=== PATIENT | female | born 1935 | race Caucasian/White ===

== ENCOUNTER → 2025-06-21 12:33 | Outpatient (REF) | payer MEDICARE, OTHER, SELFPAY ==
[2025-06-21 13:47] LABS: Hematocrit 38.6 % (37.0-47.0); Hemoglobin 12.5 g/dL (12.0-16.0); Mean Corp Hgb Conc. 32.4 g/dL (33.0-37.0); Mean Corpuscular Volume 91.3 fL (81.0-99.0); Nucleated Red Blood Cells % 0 %; Platelet Count 167 10^3/uL (130-400); Red Cell Dist. Width 13.2 % (11.5-14.5)
[2025-06-21 14:11] LABS: ALT (SGPT) 20 U/L (0-35); AST (SGOT) 33 U/L (14-36); Albumin 4.3 g/dl (3.5-5.0); Alkaline Phosphatase 86 U/L (38-126); Blood Urea Nitrogen 17 mg/dl (7-17); Calcium 10.0 mg/dl (8.4-10.2); Carbon Dioxide 32 mmol/L (22-30); Chloride 101 mmol/L (98-107); Glucose 90 mg/dl (70-99); HDL Cholesterol 76 mg/dl; LDL Cholesterol, Calculated 150 mg/dl; Potassium 4.7 mmol/L (3.5-5.1); Sodium 137 mmol/L (135-145); Total Protein 6.9 g/dl (6.3-8.2); Very Low Density Lipoprotein 16 mg/dl (0-30); eGFR > 60.00
[2025-06-21 14:26] LABS: Vitamin D, 25-OH*** 29.0 ng/mL (30-80)
== END ==
LOC: REG 12:33
PROVIDERS: ATTENDING PHYSICIAN Physician Assistant Medical
DX: M81.0 Age-related osteoporosis without current pathological fracture (principal); Z00.01 Encounter for general adult medical examination with abnormal findings; E78.00 Pure hypercholesterolemia, unspecified
CPT/HCPCS: 36415; 80053; 80061; 82306; 85025